=== PATIENT | male | born 1990 | race Caucasian/White ===

== ENCOUNTER 2017-04-25 18:26 | Emergency (ER) | payer OTHER ==
[~2017-04-25] VITALS: Ht 188 cm; Wt 100.0 kg
[~2017-04-25 18:26] MED LIST: AMBIEN 10MG10 MG PO; AMOXICILLIN 50500 MG PO; CEPHALEXIN500 M1 PO; DOXYCYCLINE 10100 MG PO; FLEXERIL10 MG PO; FLOMAX 0.40.4 MG/CAP PO; HYDROCODONE/APAP; IBUPROFEN200 M1 PO; KLONOPIN 1MG1 MG PO; KLONOPIN1 MG PO; LEXAPRO 10MG10 MG PO; LORTAB 10/500 51 TAB; LORTAB 5/500 501 TAB PO; LORTAB 7.5/5001 TAB PO; MOTRIN 800800 MG/TAB PO; MULTI VITAMINS1 TAB PO; NAPROSYN500 MG PO; NAPROXEN220 MG PO; NO HOME MEDICATIONS; NORCO 325 MG-51 TAB PO; NORFLEX100 MG PO; PERCOCET 325 MG1 TA2 PO; PERCR 7.5 PO; PREDNISONE20 MG PO; ROXICODONE15 MG PO; ULTRAM 50MG TAB50 MG PO; ZOFRAN 4MG T4 MG/TAB PO
[2017-04-25 18:42] VITALS: BP 132/73; TEMP 98.1
[2017-04-25] MEDS ORDERED: NORCO 325 MG-7.1 TAB PO (19:44)
[2017-04-25 20:10] VITALS: PULSE 89
== END 2017-04-25 20:10 | disposition home or self-care (01) ==
LOC: COL.ER 18:26
DX: S62.024A Nondisplaced fracture of middle third of navicular [scaphoid] bone of right wrist, initial encounter for closed fracture (principal); W01.10XA Fall on same level from slipping, tripping and stumbling with subsequent striking against unspecified object, initial encounter; Y92.414 Local residential or business street as the place of occurrence of the external cause

== ENCOUNTER 2017-04-29 08:17 | Day surgery (SDC) | payer OTHER ==
[~2017-04-29] VITALS: Ht 188 cm; Wt 100.8 kg
[~2017-04-29 08:17] MED LIST changes: +NORCO 325 MG-7.1 TAB PO
[2017-04-29] MEDS ORDERED: ALEVE 220MG220 MG PO (08:52)
[2017-04-29 08:53] VITALS: BP 129/87; PULSE 70; TEMP 98.1
[2017-04-29 11:55] VITALS: BP 130/80; PULSE 66; TEMP 98.2
[2017-04-29 12:05] VITALS: BP 135/81; PULSE 66
[2017-04-29 14:19] VITALS: BP 131/90; PULSE 63
== END 2017-04-29 12:40 | disposition home or self-care (01) ==
LOC: SDCO 08:17
DX: S62.024A Nondisplaced fracture of middle third of navicular [scaphoid] bone of right wrist, initial encounter for closed fracture (principal); W18.30XA Fall on same level, unspecified, initial encounter; Y93.02 Activity, running; F17.210 Nicotine dependence, cigarettes, uncomplicated
CPT/HCPCS: J1885; J2270; J2405; J2704; J2765; J3010; J7120

== ENCOUNTER 2020-07-23 23:56 | Emergency (ER) | payer BC ==
[~2020-07-23] VITALS: Ht 188 cm; Wt 106.8 kg
[~2020-07-23 23:56] MED LIST changes: +ALEVE 220MG220 MG PO
[2020-07-24 00:10] VITALS: TEMP 98.4
[2020-07-24 01:22] LABS: STREP SCREEN NEGATIVE
[2020-07-24 01:26] LABS: BASO % 0.4 % (0.0-2.0); EOS # 0.1 (0.0-0.7); EOS % 1.3 % (0-4.0); GRAN # 3.9 (1.4-6.5); GRAN % 49.7 % (42.2-75.2); HEMATOCRIT 44.8 % (42.0-52.0); HEMOGLOBIN 15.6 g/dl (13.5-18.0); LYMPH # 3.1 (1.2-3.4); LYMPH % 39.8 % (20.0-51.0); MEAN CELL VOLUME 91 fl (80.0-100.0); MEAN CORPUSCULAR HEMOGLOBIN 32 pg (27.0-31.0); MEAN CORPUSCULAR HGB CONC 35 g/dl (33.0-37.0); MEAN PLATELET VOLUME 9.7 fl (7.4-10.4); MONO # 0.6 (0.1-0.6); PLATELET COUNT 171 K/mm3 (130-400); RED BLOOD COUNT 4.94 M/mm3 (4.20-5.60); REDCELL DISTRIBUTION WIDTH-CV 11.6 % (11.5-14.5)
[2020-07-24] MEDS ORDERED: AMOXICILLIN 8751 TAB PO (01:44)
[2020-07-24 02:08] VITALS: BP 130/80; PULSE 80
[2020-07-26 13:21] LABS: MUMPS VIRUS ANTIBODY,IGG Equivocal (())
== END 2020-07-24 02:08 | disposition home or self-care (01) ==
LOC: COL.ER 23:56
PROVIDERS: Emergency Medicine
DX: K11.1 Hypertrophy of salivary gland (principal); R59.0 Localized enlarged lymph nodes; F17.210 Nicotine dependence, cigarettes, uncomplicated

== ENCOUNTER 2021-06-19 19:52 | Emergency (ER) | payer SELFPAY ==
[~2021-06-19] VITALS: Ht 188 cm; Wt 109.1 kg
[~2021-06-19 19:52] MED LIST changes: +AMOXICILLIN 8751 TAB PO; +TOPROL XL 25MG25 MG PO; +VALIUM 5MG T5 MG/TAB PO
[2021-06-19 20:04] VITALS: TEMP 98.3
[2021-06-19 21:28] VITALS: BP 158/69; PULSE 81
[2021-06-19] MEDS ORDERED: CRUTCHES MC (21:32)
== END 2021-06-19 21:28 | disposition home or self-care (01) ==
LOC: COL.ER 19:52
DX: S93.602A Unspecified sprain of left foot, initial encounter (principal); F17.210 Nicotine dependence, cigarettes, uncomplicated; X50.1XXA Overexertion from prolonged static or awkward postures, initial encounter; Y92.59 Other trade areas as the place of occurrence of the external cause; Y99.0 Civilian activity done for income or pay

== ENCOUNTER → 2022-03-06 | Outpatient (CLI) | payer OTHER ==
[~2022-03-06] MED LIST changes: +CRUTCHES MC
== END ==
LOC: COL.RAD 10:30
DX: K80.20 Calculus of gallbladder without cholecystitis without obstruction (principal)